=== PATIENT | female | born 1960 | race Caucasian/White ===

== ENCOUNTER 2024-01-22 10:46 | Outpatient (CLI) | payer MEDICARE, BC, SELFPAY ==
--- NOTE | 2024-01-22 11:54 | W.ANESCHARGE ---
Anesthesia Charges Start Date/Time Anesthesia Start Date: 01/22/24 Anesthesia Start Time: 11:58 Stop Date/Time Anesthesia Stop Date: 01/22/24 Anesthesia Stop Time: 12:31
--- NOTE | 2024-01-22 12:46 | W.ANESCHARGE ---
Anesthesia Charges Start Date/Time Anesthesia Start Date: 01/22/24 Anesthesia Start Time: 11:58 Stop Date/Time Anesthesia Stop Date: 01/22/24 Anesthesia Stop Time: 12:31
== END 2024-01-22 10:47 | disposition home or self-care (01) ==
LOC: OP CLINIC 10:52
PROVIDERS: PCP Physician Assistant; Visit Provider Internal Medicine Gastroenterology
DX: R19.5 Other fecal abnormalities (principal); K63.5 Polyp of colon
CPT/HCPCS: 00811; 45380; 88305; J2704